=== PATIENT | male | born 1945 | race Caucasian/White ===

== ENCOUNTER → 2018-03-04 | Outpatient (CLI) | payer MEDICARE ==
[~2018-03-04] MED LIST: OMNIPAQUE 350 MG/ML, 100ML BOTTLE ONE
== END | disposition home or self-care (01) ==
LOC: RAD 13:02
PROVIDERS: ATTEND Internal Medicine Cardiovascular Disease
DX: I77.810 Thoracic aortic ectasia (principal); I51.7 Cardiomegaly
CPT/HCPCS: 71275; Q9967

== ENCOUNTER 2018-12-09 13:37 | Day surgery (SDC) | payer MEDICARE ==
[2018-12-08 10:26] LABS: MICROSCOPIC NOT IND
[~2018-12-09] VITALS: Ht 193 cm; Wt 100.2 kg
[~2018-12-09 13:37] MED LIST changes: +ASPI-496 PO; +ATOR40TA78 PO; +D-Mannose PO; +DOXY25TA45 PO; +HYDROmorphone 1 MG/ML, 1ML IV PRN; +LABETALOL 5MG/ML, 20ML IV PRN; +MEPERIDINE/PF 25MG/0.5ML IVPush PRN; +MIDAZOLAM 1 MG/ML, 2ML IV PRN; -OMNIPAQUE 350 MG/ML, 100ML BOTTLE ONE; +ONDANSETRON 2MG/ML, 2ML IVPush PRN; +OXYcodone 5 MG/5 ML ORAL.SOL UDC PO PRN; +TIMO5DRO28 EACHEYE; +melatonin PO; +vitamin d PO
[2018-12-09 14:04] VITALS: BP 146/79
[2018-12-09] MEDS ORDERED: LACTATED RINGERS 1,000 ML IV SCH (14:27)
[2018-12-09] MEDS ORDERED: METOCLOPRAMIDE 5 MG/ML, 2ML ONE (15:59)
[2018-12-09] MEDS ORDERED: PROPOFOL 10 MG/ML, 20ML ONE (15:59)
[2018-12-09] MEDS ORDERED: LIDOCAINE-MPF 2% ,5ML ONE (15:59)
[2018-12-09] MEDS ORDERED: GLYCOPYRROLATE 0.2MG/1ML, 5ML ONE (15:59)
[2018-12-09] MEDS ORDERED: DEXAMETHASONE 4 MG/ML, 5ML ONE (15:59)
[2018-12-09] MEDS ORDERED: MIDAZOLAM 1 MG/ML, 2ML ONE (15:59)
[2018-12-09] MEDS ORDERED: FENTANYL PF 100 MCG/2ML ONE ×2 (15:59→17:31)
[2018-12-09] MEDS ORDERED: ONDANSETRON 2MG/ML, 2ML ONE (15:59)
[2018-12-09] MEDS ORDERED: VANCOMYCIN 1,000 MG ONE (16:54)
[2018-12-09] MEDS ORDERED: OXYcodone 5 MG/5 ML ORAL.SOL UDC ONE (17:32)
[2018-12-09] MEDS: FENTANYL PF 100 MCG/2ML IV PRN ×2 (17:34→17:47)
[2018-12-09] MEDS ORDERED: hydrALAzine 20 MG/ML, 1ML IV ONE ×2 (18:00→18:30)
== END 2018-12-09 19:13 | disposition home or self-care (01) ==
LOC: OR 13:37
PROVIDERS: ATTEND Urology
DX: N40.1 Benign prostatic hyperplasia with lower urinary tract symptoms (principal); E78.00 Pure hypercholesterolemia, unspecified; Z72.89 Other problems related to lifestyle; Z87.891 Personal history of nicotine dependence; Z87.440 Personal history of urinary (tract) infections
CPT/HCPCS: 52601; 81003; 87086; 88305; 93005; J0360; J1100; J2250; J2405; J2704; J2765; J3010; J3370; J3490; J7120; 88342

== ENCOUNTER → 2019-01-07 | Outpatient (CLI) | payer MEDICARE ==
[~2019-01-07] MED LIST changes: -HYDROmorphone 1 MG/ML, 1ML IV PRN; -LABETALOL 5MG/ML, 20ML IV PRN; -MEPERIDINE/PF 25MG/0.5ML IVPush PRN; -MIDAZOLAM 1 MG/ML, 2ML IV PRN; -ONDANSETRON 2MG/ML, 2ML IVPush PRN; -OXYcodone 5 MG/5 ML ORAL.SOL UDC PO PRN
== END | disposition home or self-care (01) ==
LOC: CFH 13:58
PROVIDERS: ATTEND Internal Medicine Cardiovascular Disease
DX: I08.0 Rheumatic disorders of both mitral and aortic valves (principal); I71.2 Thoracic aortic aneurysm, without rupture; E78.5 Hyperlipidemia, unspecified
CPT/HCPCS: 93306

== ENCOUNTER → 2019-12-21 | Outpatient (CLI) | payer MEDICARE | END | disposition home or self-care (01) | LOC: CFH 08:47 | PROVIDERS: ATTEND Internal Medicine Cardiovascular Disease | DX: I08.3 Combined rheumatic disorders of mitral, aortic and tricuspid valves (principal) | CPT/HCPCS: 93306 ==